=== PATIENT | male | born 1930 | race Caucasian/White ===

== ENCOUNTER 2017-01-08 11:15 | Emergency (ER) | payer MEDICARE, OTHER ==
[~2017-01-08] VITALS: Ht 182.9 cm; Wt 81.0 kg
[2017-01-08] MEDS ORDERED: SODIUM CHLORIDE 0.9% 1,000 ML IV ONE (11:49)
[2017-01-08] MEDS ORDERED: FURO20TA3 PO (11:54)
[2017-01-08] MEDS ORDERED: BUDE0.5A INH (12:22)
[2017-01-08] MEDS ORDERED: SERT100T5 PO (12:22)
[2017-01-08] MEDS ORDERED: CARV25TA12 PO (12:22)
[2017-01-08] MEDS ORDERED: BRIM5DRO3 EACHEYE (12:22)
[2017-01-08] MEDS ORDERED: APIX5TAB PO (12:22)
[2017-01-08] MEDS ORDERED: CARB1TAB22 PO (12:22)
[2017-01-08] MEDS ORDERED: CLON0.5T20 PO (12:22)
[2017-01-08] MEDS ORDERED: DILT-4 PO (12:22)
[2017-01-08] MEDS ORDERED: LORSARTAN PO (12:22)
[2017-01-08] MEDS ORDERED: CARB1TAB44 PO (12:22)
[2017-01-08] MEDS ORDERED: TAMS0.4C2 PO (12:22)
[2017-01-08] MEDS ORDERED: DONE10TA7 PO (12:22)
[2017-01-08] MEDS ORDERED: MODA200T2 PO (12:22)
[2017-01-08] MEDS ORDERED: TIOT18CA INH (12:22)
[2017-01-08] MEDS ORDERED: DIGO250T PO (12:22)
[2017-01-08 12:45] LABS: BLOOD UREA NITROGEN 24 mg/dL (7-18)
[2017-01-08 12:46] LABS: ASPARTATE AMINO TRANSFERASE 14 U/L (15-37)
[2017-01-08 12:54] LABS: IS PT STATUS REG ER OR PRE ER? YES
[2017-01-08 13:37] VITALS: BP 154/71
== END 2017-01-08 13:55 | disposition home or self-care (01) ==
LOC: ED 12:01
DX: R55 Syncope and collapse (principal); R07.2 Precordial pain; R51 Headache; I10 Essential (primary) hypertension
CPT/HCPCS: 36415; 71010; 80053; 84484; 85025; 93005; 96360; 96361; 99285; J7030

== ENCOUNTER 2017-01-09 10:27 | Day surgery (SDC) | payer MEDICARE, OTHER ==
[2017-01-08 14:40] VITALS: BP 152/74
[~2017-01-09] VITALS: Ht 182.9 cm; Wt 80.0 kg
[~2017-01-09 10:27] MED LIST: APIX5TAB PO; BRIM5DRO3 EACHEYE; BUDE0.5A INH; CARB1TAB22 PO; CARB1TAB44 PO; CARV25TA12 PO; CLON0.5T20 PO; DIGO250T PO; DILT-4 PO; DONE10TA7 PO; FENTANYL PF 100 MCG/2ML ONE; FURO20TA3 PO; LORSARTAN PO; MODA200T2 PO; SERT100T5 PO; TAMS0.4C2 PO; TIOT18CA INH
[2017-01-09] MEDS ORDERED: LACTATED RINGERS 1,000 ML IV SCH (11:00)
[2017-01-09] MEDS ORDERED: LIDOCAINE 1%, 2ML SQ PRN (11:00)
[2017-01-09] MEDS ORDERED: ONDANSETRON 2MG/ML, 2ML IVPush PRN ×2 (12:00→14:00)
[2017-01-09] MEDS ORDERED: FENTANYL PF 100 MCG/2ML IV PRN ×2 (12:00→14:00)
[2017-01-09] MEDS ORDERED: OXYcodone 5 MG/5 ML ORAL.SOL UDC PO PRN ×2 (12:00→14:00)
[2017-01-09] MEDS ORDERED: hydrALAzine 20 MG/ML, 1ML IV PRN ×2 (12:00→14:00)
[2017-01-09] MEDS ORDERED: LABETALOL 5MG/ML, 20ML IV PRN ×2 (12:00→14:00)
[2017-01-09] MEDS ORDERED: PROPOFOL 10 MG/ML, 20ML ONE (12:54)
[2017-01-09] MEDS ORDERED: ONDANSETRON 2MG/ML, 2ML ONE (12:54)
[2017-01-09] MEDS ORDERED: SUCCINYLCHOLINE 20 MG/ML, 10ML ONE (12:54)
[2017-01-09] MEDS ORDERED: DEXAMETHASONE 4 MG/ML, 5ML ONE (12:54)
[2017-01-09] MEDS ORDERED: ROCURONIUM 10 MG/ML ONE (12:54)
[2017-01-09] MEDS ORDERED: ACETAMINOPHEN 325 MG TABLET PO PRN (14:00)
[2017-01-09] MEDS ORDERED: HYDROmorphone 1 MG/ML, 1ML IV PRN (14:00)
[2017-01-09] MEDS ORDERED: ALBUTEROL SULFATE 2.5 MG/3 ML NPPB PRN (14:00)
[2017-01-09] MEDS ORDERED: PROMETHAZINE 25 MG/ML, 1ML IV PRN (14:00)
[2017-01-09] MEDS ORDERED: MEPERIDINE/PF 25MG/0.5ML IVPush PRN (14:00)
[2017-01-09] MEDS ORDERED: MIDAZOLAM 1 MG/ML, 2ML IV PRN (14:00)
== END 2017-01-09 15:20 | disposition home or self-care (01) ==
LOC: OUT 10:27
DX: R93.5 Abnormal findings on diagnostic imaging of other abdominal regions, including retroperitoneum (principal); E78.5 Hyperlipidemia, unspecified; J44.9 Chronic obstructive pulmonary disease, unspecified; F03.90 Unspecified dementia, unspecified severity, without behavioral disturbance, psychotic disturbance, mood disturbance, and anxiety; I48.91 Unspecified atrial fibrillation; I25.10 Atherosclerotic heart disease of native coronary artery without angina pectoris; I11.0 Hypertensive heart disease with heart failure; I50.9 Heart failure, unspecified; G20 Parkinson's disease; F41.9 Anxiety disorder, unspecified; M19.90 Unspecified osteoarthritis, unspecified site; Z96.659 Presence of unspecified artificial knee joint; Z72.89 Other problems related to lifestyle; F17.210 Nicotine dependence, cigarettes, uncomplicated; K21.9 Gastro-esophageal reflux disease without esophagitis; I42.9 Cardiomyopathy, unspecified; Z90.49 Acquired absence of other specified parts of digestive tract; Z82.49 Family history of ischemic heart disease and other diseases of the circulatory system; Z80.6 Family history of leukemia; Z80.8 Family history of malignant neoplasm of other organs or systems; Z80.0 Family history of malignant neoplasm of digestive organs
CPT/HCPCS: 43264; 74328; C1769; J0330; J1100; J2405; J2704; J3010; J7120